=== PATIENT | male | born 1955 | race Caucasian/White ===

== ENCOUNTER 2017-01-20 07:50 | Emergency (ER) | payer OTHER ==
[~2017-01-20] VITALS: Ht 182.9 cm; Wt 90.9 kg
[~2017-01-20 07:50] MED LIST: ASPIR-LOW81 MG PO; AUGMENTIN875 MG PO; BENAZEPRIL HCL10 MG PO; CARDURA4 MG PO; CHANTIX1 EACH PO; DOXAZOSIN MESYLA4 MG PO; GABAPENTIN300 MG PO; LEVAQUIN500 MG PO; MECLIZINE HCL12.5 M1 PO; MEDROL DOSEPAK4 MG PO; MELOXICAM15 MG PO; MOTRIN600 MG PO; PERCOCET 5/31 TABLET PO; SPIRIVA RESPIMAT4 G1 IH; VENTOLIN HFA18 GM IH
[2017-01-20 07:56] VITALS: BP 146/87
[2017-01-20] MEDS ORDERED: FLEXERIL10 MG PO (09:08)
[2017-01-20] MEDS ORDERED: NAPROXEN500 MG PO (09:08)
== END 2017-01-20 10:36 | disposition home or self-care (01) ==
LOC: EME 07:50
DX: S20.212A Contusion of left front wall of thorax, initial encounter (principal); Y04.0XXA Assault by unarmed brawl or fight, initial encounter; Y99.0 Civilian activity done for income or pay; Y92.239 Unspecified place in hospital as the place of occurrence of the external cause
CPT/HCPCS: 71101; 99281; 99282; J1885

== ENCOUNTER 2017-03-10 03:29 | Emergency (ER) | payer OTHER ==
[~2017-03-10] VITALS: Ht 180.3 cm; Wt 94.3 kg
[~2017-03-10 03:29] MED LIST changes: +FLEXERIL10 MG PO; +NAPROXEN500 MG PO
[2017-03-10] MEDS ORDERED: NORCO 5/3251 TABLET PO (04:30)
[2017-03-10 04:54] VITALS: BP 164/100
== END 2017-03-10 04:42 | disposition home or self-care (01) ==
LOC: EME 03:29
PROC: 2W3KX1Z Immobilization of Left Finger using Splint (ICD-10-PCS; principal; 2017-03-10)
DX: S63.92XA Sprain of unspecified part of left wrist and hand, initial encounter (principal); Y09 Assault by unspecified means; Y99.0 Civilian activity done for income or pay; Y92.149 Unspecified place in prison as the place of occurrence of the external cause
CPT/HCPCS: 73110; 73130; 99281; 99284

== ENCOUNTER → 2018-05-21 | Outpatient (CLI) | payer OTHER ==
[~2018-05-21] MED LIST changes: +NORCO 5/3251 TABLET PO
== END | disposition home or self-care (01) ==
LOC: CDC 08:33
DX: M25.562 Pain in left knee (principal)
CPT/HCPCS: 93000

== ENCOUNTER 2018-06-04 13:14 | Day surgery (SDC) | payer OTHER ==
[~2018-06-04] VITALS: Ht 182.9 cm; Wt 95.2 kg
[~2018-06-04 13:14] MED LIST changes: +GERITOL COMP1 TABLET PO; +LUNESTA2 MG PO; +NEURONTIN300 MG PO; +ULTRAM ER100 MG PO
[2018-06-04 13:41] VITALS: BP 158/99
[2018-06-04 18:55] VITALS: BP 166/85
[2018-06-04 19:54] VITALS: BP 185/85
[2018-06-04 20:15] VITALS: BP 156/90
== END 2018-06-04 20:33 | disposition home or self-care (01) ==
LOC: SDC 13:14
PROC: 0SBD4ZZ Excision of Left Knee Joint, Percutaneous Endoscopic Approach (ICD-10-PCS; principal; 2018-06-04)
PROC: 0SQD4ZZ Repair Left Knee Joint, Percutaneous Endoscopic Approach (ICD-10-PCS; principal; 2018-06-04)
DX: S83.232A Complex tear of medial meniscus, current injury, left knee, initial encounter (principal); S72.432A Displaced fracture of medial condyle of left femur, initial encounter for closed fracture; I10 Essential (primary) hypertension; X58.XXXA Exposure to other specified factors, initial encounter; F17.200 Nicotine dependence, unspecified, uncomplicated
CPT/HCPCS: 73560; 76000; C1713; J0171; J0690; J1100; J1170; J1885; J2250; J2405; J3010